=== PATIENT | female | born 1965 | race African-American/Black ===

== ENCOUNTER 2017-01-02 10:06 | Emergency (ER) | payer SELFPAY ==
[~2017-01-02] VITALS: Ht 165.1 cm; Wt 110.2 kg
[2017-01-02 11:19] LABS: BASO # 0.1 x10^3/uL (0.0-0.2); BASO % 1 % (0-3); EOS % 1 % (0-3); HEMATOCRIT 33.7 % (36.0-47.0); HEMOGLOBIN 10.9 g/dL (12.0-15.5); LYMPH # 1.7 x10^3/uL (1.0-4.8); LYMPH % 21 % (24-48); MEAN CORPUSCULAR HEMOGLOBIN 30 pg (25-35); MEAN CORPUSCULAR HGB CONC 32 g/dL (31-37); MEAN CORPUSCULAR VOLUME 92 fL (79-100); MONO % 4 % (0-9); NEUT % 74 % (31-73); PLATELET COUNT 297 x10^3/uL (140-400); RED BLOOD COUNT 3.67 x10^6/uL (3.50-5.40); RED CELL DISTRIBUTION WIDTH 15.9 % (11.5-14.5); WHITE BLOOD COUNT 8.2 x10^3/uL (4.0-11.0)
[2017-01-02 11:26] LABS: BILIRUBIN,URINE NEGATIVE (NEG); GLUCOSE,URINE NEGATIVE (NEG); NITRITE,URINE NEGATIVE (NEG); PROTEIN,URINE NEGATIVE (NEG-TRACE); UROBILINOGEN,URINE 0.2 mg/dL (0.2 mg/dL)
[2017-01-02] MEDS ORDERED: IV NORMAL SALINE 1000ML BAG 1,000 ML IV ONE (11:30)
[2017-01-02] MEDS ORDERED: FAMOTIDINE 20 MG/2 ML VIAL IVP ONE (11:30)
[2017-01-02] MEDS ORDERED: MORPHINE SULFATE 10 MG/ML VIAL. IV ONE (11:30)
[2017-01-02] MEDS ORDERED: ONDANSETRON PF 4 MG/2 ML VIAL. IV ONE (11:30)
[2017-01-02 11:33] LABS: CALCIUM 9.8 mg/dL (8.5-10.1); CREATININE 1.2 mg/dL (0.6-1.0); GFR 57.3; POTASSIUM 3.5 mmol/L (3.5-5.1)
[2017-01-02 11:36] LABS: BACTERIA,URINE MODERATE /HPF (0-FEW); SQUAMOUS EPITHELIAL CELL,UR MANY /LPF
[2017-01-02 11:37] LABS: RBC,URINE OCC /HPF (0-2)
[2017-01-02 11:38] LABS: TRICHOMONAS,URINE PRESENT
[2017-01-02 11:39] LABS: ALBUMIN 4.1 g/dL (3.4-5.0); ALBUMIN/GLOBULIN RATIO 1.1 (1.0-1.7); TOTAL BILIRUBIN 0.2 mg/dL (0.2-1.0)
--- NOTE | 2017-01-02 12:22 | RAD ---
CT study of the abdomen and pelvis without contrast Clinical indications: Abdominal pain. Technique: Noncontrast helical CT scanning of the abdomen and pelvis was performed. Without contrast, the sensitivity to detect organ pathology and GI tract pathology is decreased. PQRS Compliance Statement: One or more of the following individualized dose reduction techniques were utilized for this examination: 1. Automated exposure control 2. Adjustment of the mA and/or kV according to patient size 3. Use of iterative reconstruction technique Comparison: None available. Findings: The liver and spleen and pancreas are homogeneous in appearance on this noncontrast study. The gallbladder is normal and no extra hepatic biliary ductal dilatation is seen. No adrenal mass is evident. Urinary bladder is not distended. No hydronephrosis or hydroureter or urinary tract stone is seen. No focal aneurysmal dilatation of the abdominal aorta is seen. No enlarged abdominal or pelvic lymphadenopathy is seen. Uterus is enlarged measuring 16 cm in length. Mild thickening of the endometrial canal is seen. No dominant ovarian cyst or mass is seen. The appendix is normal. No obstructive bowel pattern is seen. Midline supraumbilical abdominal hernia is seen containing only fat. Inflammatory change is seen here which may indicate incarceration. The hernia sac measures 4.5 cm. No bowel loops is seen extending into this area. No bowel obstruction or free air or free fluid or mesenteric inflammatory change is seen. No lung base consolidation is evident. No osteolytic process is seen. IMPRESSION: Anterior supraumbilical midline abdominal wall hernia containing only fat. Inflammatory change is seen here consistent with incarceration. No bowel is seen extending into this area. No bowel obstruction is evident. Enlarged uterus. Mild thickening of the endometrial canal. Recommend outpatient pelvic sonography for further evaluation.
[2017-01-02] MEDS ORDERED: metroNIDAZOLE 500 MG TABLET PO ONE (13:00)
[2017-01-02] MEDS ORDERED: AZITHROMYCIN 250 MG TABLET. PO ONE (13:00)
[2017-01-02] MEDS ORDERED: cefTRIAXone IM 250 MG VIAL IM ONE (13:00)
--- NOTE | 2017-01-02 13:21 | PHYS DOC ---
Past Medical History Past Medical History: No Pertinent History, Hypothyroid Past Surgical History: No Surgical History Alcohol Use: None Drug Use: None Adult General Chief Complaint Chief Complaint: ABDOMINAL PAIN HPI HPI Patient is a 51 year old female with history of hypothyroidism who presents today with right flank and low back pain mild in nature that has been going on intermittently for 1 month. Patient is also complaining of generalized abdominal pain for 1 month. Patient denies any trauma. Denies any pain radiating to bilateral lower extremities. She states she is aware she has " a very bad thyroid problem with high numbers" and is supposed to be on medication but she does not take the medication neither does she follow up with her PCP. Patient denies any hematuria chest pain urgency frequency dysuria. PCP at [facility] Review of Systems Review of Systems Constitutional: Denies fever or chills [] Eyes: Denies change in visual acuity, redness, or eye pain [] HENT: Denies nasal congestion or sore throat [] Respiratory: Denies cough or shortness of breath [] Cardiovascular: No additional information not addressed in HPI [] GI: Generalized abdominal pain : Right flank pain Musculoskeletal: low back pain Integument: Denies rash or skin lesions [] Neurologic: Denies headache, focal weakness or sensory changes [] Endocrine: Denies polyuria or polydipsia [] Current Medications Current Medications Current Medications Medications (Trade) Dose Ordered Sig/Deny Start Time Stop Time Status Last Admin Dose Admin Azithromycin (Zithromax) 1,000 mg 1X ONCE 01/02/17 13:00 01/02/17 13:01 DC 01/02/17 13:11 1,000 MG Ceftriaxone Sodium (Rocephin Im) 250 mg 1X ONCE 01/02/17 13:00 01/02/17 13:01 DC 01/02/17 13:11 250 MG Famotidine (Pepcid) 20 mg 1X ONCE 01/02/17 11:30 01/02/17 11:31 DC 01/02/17 11:30 20 MG Metronidazole (Flagyl) 2,000 mg 1X ONCE 01/02/17 13:00 01/02/17 13:01 DC 01/02/17 13:11 2,000 MG Morphine Sulfate 5 mg 1X ONCE 01/02/17 11:30 01/02/17 11:31 DC 01/02/17 11:31 5 MG Ondansetron HCl (Zofran) 4 mg 1X ONCE 01/02/17 11:30 01/02/17 11:31 DC 01/02/17 11:30 4 MG Sodium Chloride 1,000 ml @ 1,000 mls/hr 1X ONCE 01/02/17 11:30 01/02/17 12:29 DC 01/02/17 11:30 1,000 MLS/HR Allergies Allergies Allergies Coded Allergies Type Severity Reaction Last Updated Verified No Known Drug Allergies 01/02/17 No Physical Exam Physical Exam Constitutional: Well developed, well nourished, no acute distress, non-toxic appearance. [] HENT: Normocephalic, atraumatic, bilateral external ears normal, oropharynx moist, no oral exudates, nose normal. [] Eyes: PERRLA, EOMI, conjunctiva normal, no discharge. [] Neck: Normal range of motion, no tenderness, supple, no stridor. [] Cardiovascular:Heart rate regular rhythm, no murmur [] Lungs & Thorax: Bilateral breath sounds clear to auscultation [] Abdomen: Rounded obese abdomen with obvious supraumbilical hernia with tenderness on the hernia on exam. Bowel sounds normal, soft, no masses, no pulsatile masses. [] Skin: Warm, dry, no erythema, no rash. [] Back: No tenderness, no CVA tenderness. [] Extremities: No tenderness, no cyanosis, no clubbing, ROM intact, no edema. [] Neurologic: Alert and oriented X 3, normal motor function, normal sensory function, no focal deficits noted. [] Psychologic: Affect normal, judgement normal, mood normal. [] Current Patient Data Vital Signs Vital Signs Date Time Temp Pulse Resp B/P (MAP) Pulse Ox O2 Delivery O2 Flow Rate FiO2 01/02/17 13:05 58 172/85 (114) 97 Room Air 01/02/17 11:31 16 01/02/17 10:30 97.9 97.9 Lab Values Laboratory Tests Test 01/02/17 11:00 01/02/17 11:10 Urine Collection Type Unknown Urine Color Yellow Urine Clarity Clear Urine pH 6.0 Urine Specific [place] 1.025 Urine Protein Negative mg/dL (NEG-TRACE) Urine Glucose (UA) Negative mg/dL (NEG) Urine Ketones (Stick) Negative mg/dL (NEG) Urine Blood Negative (NEG) Urine Nitrite Negative (NEG) Urine Bilirubin Negative (NEG) Urine Urobilinogen Dipstick 0.2 mg/dL (0.2 mg/dL) Urine Leukocyte Esterase Moderate (NEG) Urine RBC Occ /HPF (0-2) Urine WBC 11-20 /HPF (0-4) Urine Squamous Epithelial Cells Many /LPF Urine Bacteria Moderate /HPF (0-FEW) Urine Mucus Marked /LPF Urine Trichomonas Present White Blood Count 8.2 x10^3/uL (4.0-11.0) Red Blood Count 3.67 x10^6/uL (3.50-5.40) Hemoglobin 10.9 g/dL (12.0-15.5) L Hematocrit 33.7 % (36.0-47.0) L Mean Corpuscular Volume 92 fL (79-100) Mean Corpuscular Hemoglobin 30 pg (25-35) Mean Corpuscular Hemoglobin Concent 32 g/dL (31-37) Red Cell Distribution Width 15.9 % (11.5-14.5) H Platelet Count 297 x10^3/uL (140-400) Neutrophils (%) (Auto) 74 % (31-73) H Lymphocytes (%) (Auto) 21 % (24-48) L Monocytes (%) (Auto) 4 % (0-9) Eosinophils (%) (Auto) 1 % (0-3) Basophils (%) (Auto) 1 % (0-3) Neutrophils # (Auto) 6.0 x10^3uL (1.8-7.7) Lymphocytes # (Auto) 1.7 x10^3/uL (1.0-4.8) Monocytes # (Auto) 0.4 x10^3/uL (0.0-1.1) Eosinophils # (Auto) 0.1 x10^3/uL (0.0-0.7) Basophils # (Auto) 0.1 x10^3/uL (0.0-0.2) Sodium Level 143 mmol/L (136-145) Potassium Level 3.5 mmol/L (3.5-5.1) Chloride Level 106 mmol/L (98-107) Carbon Dioxide Level 27 mmol/L (21-32) Anion Gap 10 (6-14) Blood Urea Nitrogen 12 mg/dL (7-20) Creatinine 1.2 mg/dL (0.6-1.0) H Estimated GFR (Cockcroft-Gault) 57.3 BUN/Creatinine Ratio 10 (6-20) Glucose Level 99 mg/dL (70-99) Calcium Level 9.8 mg/dL (8.5-10.1) Total Bilirubin 0.2 mg/dL (0.2-1.0) Aspartate Amino Transferase (AST) 29 U/L (15-37) Alanine Aminotransferase (ALT) 21 U/L (14-59) Alkaline Phosphatase 96 U/L (46-116) Total Protein 8.0 g/dL (6.4-8.2) Albumin 4.1 g/dL (3.4-5.0) Albumin/Globulin Ratio 1.1 (1.0-1.7) Lipase 124 U/L (73-393) Thyroid Stimulating Hormone (TSH) 33.499 uIU/mL (0.358-3.74) H Laboratory Tests 01/02/17 11:10 Laboratory Tests 01/02/17 11:10 EKG EKG [] Radiology/Procedures Radiology/Procedures PROCEDURE: CT ABDOMEN PELVIS WO CONTRAST CT study of the abdomen and pelvis without contrast Clinical indications: Abdominal pain. Technique: Noncontrast helical CT scanning of the abdomen and pelvis was performed. Without contrast, the sensitivity to detect organ pathology and GI tract pathology is decreased. PQRS Compliance Statement: One or more of the following individualized dose reduction techniques were utilized for this examination: 1. Automated exposure control 2. Adjustment of the mA and/or kV according to patient size 3. Use of iterative reconstruction technique Comparison: None available. Findings: The liver and spleen and pancreas are homogeneous in appearance on this noncontrast study. The gallbladder is normal and no extra hepatic biliary ductal dilatation is seen. No adrenal mass is evident. Urinary bladder is not distended. No hydronephrosis or hydroureter or urinary tract stone is seen. No focal aneurysmal dilatation of the abdominal aorta is seen. No enlarged abdominal or pelvic lymphadenopathy is seen. Uterus is enlarged measuring 16 cm in length. Mild thickening of the endometrial canal is seen. No dominant ovarian cyst or mass is seen. The appendix is normal. No obstructive bowel pattern is seen. Midline supraumbilical abdominal hernia is seen containing only fat. Inflammatory change is seen here which may indicate incarceration. The hernia sac measures 4.5 cm. No bowel loops is seen extending into this area. No bowel obstruction or free air or free fluid or mesenteric inflammatory change is seen. No lung base consolidation is evident. No osteolytic process is seen. IMPRESSION: Anterior supraumbilical midline abdominal wall hernia containing only fat. Inflammatory change is seen here consistent with incarceration. No bowel is seen extending into this area. No bowel obstruction is evident. Enlarged uterus. Mild thickening of the endometrial canal. Recommend outpatient pelvic sonography for further evaluation. DICTATED and SIGNED BY: DREA CALERO MD DATE: 01/02/17 1212 CC: PAT ZHU MD; ELIZABETH MELCHOR APRN; NO PCP ~ Course & Med Decision Making Course & Med Decision Making Pertinent Labs and Imaging studies reviewed. (See chart for details) This is a 51-year-old female patient who presents to the ED complaining of low back pain, right flank pain as well as generalized abdominal pain for 1 month. Urine positive for infection, patient is also positive for Trichomonas. She was given Flagyl Rocephin and azithromycin in the ED. CBC no acute findings, CMP lipase with no acute findings. TSH 33.499 patient states she is supposed to be on thyroid medication but she has not taken this medication for a long time. Patient is not tachycardic or bradycardic. 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 We did provide her a doctor's list. Blood pressure is 168/113, patient has history of hypertension currently not on any medication. Heart rate 79, O2 sats 95% on room air, temperature 97.9, respiration 18 on room air. We recommended PCP f/u she goes to [facility] 13:50 Gabrielle from general surgery came and talked to patient about her hernia and recommended out patient follow up Willard Disclaimer Willard Disclaimer This electronic medical record was generated, in whole or in part, using a voice recognition dictation system. Departure Departure Impression: Primary Impression: Hypothyroidism Additional Impressions: Umbilical hernia, incarcerated Pyelonephritis Back pain Trichomonal vaginitis Disposition: HOME, SELF-CARE Condition: STABLE Referrals: NO PCP (PCP) follow up with [facility] endocronologist or your doctor at [facility] or a doctor from the list provided as soon as possible CHARLEY SLAED MD follow up with the provided general surgeon as soon as possible for hernia Patient Instructions: Abdominal Pain, Pyelonephritis, Adult, Trichomoniasis Additional Instructions: You seen for abdominal pain with back pain. Your TSH was 33.499. This shows you have hypothyroidism which you are aware of. You have to follow-up with your own primary care doctor as well as an biodiesel production technician at [facility] as soon as possible. You also have a kidney infection. We put you on antibiotics to clear this infection. We sent you home with pain medicine. Take them as prescribed. Follow-up with the provided general surgeon for umbilical hernia. Come back to the ED at any point symptoms worsen. You need to contact all your partners and let them know you tested positive for Trichomonas and ask them to seek treatment because this is a sexually transmitted disease. Scripts Tramadol Hcl (ULTRAM) 50 Mg Tablet 1 TAB PO Q6HRS, #30 TAB Prov: ELIZABETH MELCHOR APRN 01/02/17 Ciprofloxacin Hcl (CIPRO) 500 Mg Tablet 1 TAB PO BID, #14 TAB Prov: ELIZABETH MELCHOR APRN 01/02/17 Problem Qualifiers Primary Impression: Hypothyroidism Hypothyroidism type: unspecified Qualified Codes: E03.9 - Hypothyroidism, unspecified Additional Impressions: Back pain Back pain location: low back pain Chronicity: acute Back pain laterality: bilateral Sciatica presence: without sciatica Qualified Codes: M54.5 - Low back pain ELIZABETH MELCHOR APRN Jan 02, 2017 13:21
[2017-01-02 13:35] VITALS: BP 139/85
--- NOTE | 2017-01-02 14:03 | PDOC2 ---
CONSULT Date of Consult Date of Consult DATE: 01/02/17 TIME: 13:55 Reason for Consult Reason for Consult: abdominal hernia Referring Physician Referring Physician: ER Identification/Chief Complaint Chief Complaint right flank pain Problems: Source Source: Chart review, Patient History of Present Illness Reason for Visit: Here for right flank pain. 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 She reports she had a umbilical hernia repair as a child--last few months has noticed bulge and some pain to area. This is unchanged today and not her main concern for ER visit. Reports normal diet, having stools, no n/v She is aware she has a hypothyroid, not following a provider or taking medication Past Medical History Endocrine: Hypothyroidism Past Surgical History Past Surgical History: Hernia Repair (umbilical ) Social History No ALCOHOL: rare Drugs: Marijuana Lives: Alone Current Problem List Problem List Problems Medical Problems: (1) Hypothyroidism Status: Acute (2) Umbilical hernia, incarcerated Status: Acute Current Medications Current Medications Current Medications Sodium Chloride 1,000 ml @ 1,000 mls/hr 1X ONCE IV Last administered on 11:30; Start 01/02/17 at 11:30; Stop 01/02/17 at 12:29; Status DC Ondansetron HCl (Zofran) 4 mg 1X ONCE IV Last administered on 01/02/17 11:30 ; Start 01/02/17 at 11:30; Stop 01/02/17 at 11:31; Status DC Famotidine (Pepcid) 20 mg 1X ONCE IVP Last administered on 01/02/17 11:30; Start 01/02/17 at 11:30; Stop 01/02/17 at 11:31; Status DC Morphine Sulfate 5 mg 1X ONCE IV Last administered on 01/02/17 11:31; Start 01/02/17 at 11:30; Stop 01/02/17 at 11:31; Status DC Ceftriaxone Sodium (Rocephin Im) 250 mg 1X ONCE IM Last administered on 13:11; Start 01/02/17 at 13:00; Stop 01/02/17 at 13:01; Status DC Azithromycin (Zithromax) 1,000 mg 1X ONCE PO Last administered on 01/02/17 13 :11; Start 01/02/17 at 13:00; Stop 01/02/17 at 13:01; Status DC Metronidazole (Flagyl) 2,000 mg 1X ONCE PO Last administered on 01/02/17t 13: 11; Start 01/02/17 at 13:00; Stop 01/02/17 at 13:01; Status DC Allergies Allergies: Coded Allergies: No Known Drug Allergies (Unverified , 01/02/17) ROS General: No: Chills, Other (fevers) PSYCHOLOGICAL ROS: No: Anxiety, Depression Eyes: No Blurry vision, No Double vision HEENT: No: Heacaches, Sore Throat Hematological and Lymphatic: No: Bleeding Problems, Blood Clots Respiratory: No: Cough, Shortness of breath Cardiovascular: No Chest Pain, No Palpitations Gastrointestinal: Yes Other (see hpi) Genitourinary: No Dysuria, No Hematuria Musculoskeletal: Yes Muscle Pain, No Joint Pain Neurological: No Confusion, No Numbness/Tingling Skin: No Pruritus, No Rash Physical Exam General: Alert, Oriented X3, Cooperative, No acute distress HEENT: PERRLA, Mucous membr. moist/pink Lungs: Clear to auscultation, Normal air movement Heart: Regular rate, Normal S1, Normal S2, No murmurs Abdomen: Soft, Other (NTTP on exam, hernia soft, difficult to tell if reduced due to body habitus) Extremities: No clubbing, No cyanosis Skin: No rashes, No breakdown Neuro: Normal gait, Normal speech Psych/Mental Status: Mental status NL, Mood NL MUSCULOSKELETAL: No deformity, No swelling Vitals VITALS Vital Signs Date Time Temp Pulse Resp B/P (MAP) Pulse Ox O2 Delivery O2 Flow Rate FiO2 01/02/17 13:05 58 172/85 (114) 97 Room Air 01/02/17 11:31 16 01/02/17 10:30 97.9 97.9 Labs Labs Laboratory Tests Test 01/02/17 11:00 01/02/17 11:10 Urine Collection Type Unknown Urine Color Yellow Urine Clarity Clear Urine pH 6.[address] [place] 1.025 Urine Protein Negative mg/dL (NEG-TRACE) Urine Glucose (UA) Negative mg/dL (NEG) Urine Ketones (Stick) Negative mg/dL (NEG) Urine Blood Negative (NEG) Urine Nitrite Negative (NEG) Urine Bilirubin Negative (NEG) Urine Urobilinogen Dipstick 0.2 mg/dL (0.2 mg/dL) Urine Leukocyte Esterase Moderate (NEG) Urine RBC Occ /HPF (0-2) Urine WBC 11-20 /HPF (0-4) Urine Squamous Epithelial Cells Many /LPF Urine Bacteria Moderate /HPF (0-FEW) Urine Mucus Marked /LPF Urine Trichomonas Present White Blood Count 8.2 x10^3/uL (4.0-11.0) Red Blood Count 3.67 x10^6/uL (3.50-5.40) Hemoglobin 10.9 g/dL (12.0-15.5) Hematocrit 33.7 % (36.0-47.0) Mean Corpuscular Volume 92 fL (79-100) Mean Corpuscular Hemoglobin 30 pg (25-35) Mean Corpuscular Hemoglobin Concent 32 g/dL (31-37) Red Cell Distribution Width 15.9 % (11.5-14.5) Platelet Count 297 x10^3/uL (140-400) Neutrophils (%) (Auto) 74 % (31-73) Lymphocytes (%) (Auto) 21 % (24-48) Monocytes (%) (Auto) 4 % (0-9) Eosinophils (%) (Auto) 1 % (0-3) Basophils (%) (Auto) 1 % (0-3) Neutrophils # (Auto) 6.0 x10^3uL (1.8-7.7) Lymphocytes # (Auto) 1.7 x10^3/uL (1.0-4.8) Monocytes # (Auto) 0.4 x10^3/uL (0.0-1.1) Eosinophils # (Auto) 0.1 x10^3/uL (0.0-0.7) Basophils # (Auto) 0.1 x10^3/uL (0.0-0.2) Sodium Level 143 mmol/L (136-145) Potassium Level 3.5 mmol/L (3.5-5.1) Chloride Level 106 mmol/L (98-107) Carbon Dioxide Level 27 mmol/L (21-32) Anion Gap 10 (6-14) Blood Urea Nitrogen 12 mg/dL (7-20) Creatinine 1.2 mg/dL (0.6-1.0) Estimated GFR (Cockcroft-Gault) 57.3 BUN/Creatinine Ratio 10 (6-20) Glucose Level 99 mg/dL (70-99) Calcium Level 9.8 mg/dL (8.5-10.1) Total Bilirubin 0.2 mg/dL (0.2-1.0) Aspartate Amino Transf (AST/SGOT) 29 U/L (15-37) Alanine Aminotransferase (ALT/SGPT) 21 U/L (14-59) Alkaline Phosphatase 96 U/L (46-116) Total Protein 8.0 g/dL (6.4-8.2) Albumin 4.1 g/dL (3.4-5.0) Albumin/Globulin Ratio 1.1 (1.0-1.7) Lipase 124 U/L (73-393) Thyroid Stimulating Hormone (TSH) 33.499 uIU/mL (0.358-3.74) Laboratory Tests Test 01/02/17 11:00 01/02/17 11:10 Urine Collection Type Unknown Urine Color Yellow Urine Clarity Clear Urine pH 6.[address] 1.025 Urine Protein Negative mg/dL (NEG-TRACE) Urine Glucose (UA) Negative mg/dL (NEG) Urine Ketones (Stick) Negative mg/dL (NEG) Urine Blood Negative (NEG) Urine Nitrite Negative (NEG) Urine Bilirubin Negative (NEG) Urine Urobilinogen Dipstick 0.2 mg/dL (0.2 mg/dL) Urine Leukocyte Esterase Moderate (NEG) Urine RBC Occ /HPF (0-2) Urine WBC 11-20 /HPF (0-4) Urine Squamous Epithelial Cells Many /LPF Urine Bacteria Moderate /HPF (0-FEW) Urine Mucus Marked /LPF Urine Trichomonas Present White Blood Count 8.2 x10^3/uL (4.0-11.0) Red Blood Count 3.67 x10^6/uL (3.50-5.40) Hemoglobin 10.9 g/dL (12.0-15.5) Hematocrit 33.7 % (36.0-47.0) Mean Corpuscular Volume 92 fL (79-100) Mean Corpuscular Hemoglobin 30 pg (25-35) Mean Corpuscular Hemoglobin Concent 32 g/dL (31-37) Red Cell Distribution Width 15.9 % (11.5-14.5) Platelet Count 297 x10^3/uL (140-400) Neutrophils (%) (Auto) 74 % (31-73) Lymphocytes (%) (Auto) 21 % (24-48) Monocytes (%) (Auto) 4 % (0-9) Eosinophils (%) (Auto) 1 % (0-3) Basophils (%) (Auto) 1 % (0-3) Neutrophils # (Auto) 6.0 x10^3uL (1.8-7.7) Lymphocytes # (Auto) 1.7 x10^3/uL (1.0-4.8) Monocytes # (Auto) 0.4 x10^3/uL (0.0-1.1) Eosinophils # (Auto) 0.1 x10^3/uL (0.0-0.7) Basophils # (Auto) 0.1 x10^3/uL (0.0-0.2) Sodium Level 143 mmol/L (136-145) Potassium Level 3.5 mmol/L (3.5-5.1) Chloride Level 106 mmol/L (98-107) Carbon Dioxide Level 27 mmol/L (21-32) Anion Gap 10 (6-14) Blood Urea Nitrogen 12 mg/dL (7-20) Creatinine 1.2 mg/dL (0.6-1.0) Estimated GFR (Cockcroft-Gault) 57.3 BUN/Creatinine Ratio 10 (6-20) Glucose Level 99 mg/dL (70-99) Calcium Level 9.8 mg/dL (8.5-10.1) Total Bilirubin 0.2 mg/dL (0.2-1.0) Aspartate Amino Transf (AST/SGOT) 29 U/L (15-37) Alanine Aminotransferase (ALT/SGPT) 21 U/L (14-59) Alkaline Phosphatase 96 U/L (46-116) Total Protein 8.0 g/dL (6.4-8.2) Albumin 4.1 g/dL (3.4-5.0) Albumin/Globulin Ratio 1.1 (1.0-1.7) Lipase 124 U/L (73-393) Thyroid Stimulating Hormone (TSH) 33.499 uIU/mL (0.358-3.74) Assessment/Plan Assessment/Plan supraumbilical hernia, fat containing incarcerated--no bowel involvement flank pain with + UA, trich on UA very high TSH of 33 morbid obesity with BMI 40.4 recommend treatment for infection, needs FU for thyroid adjustments would rec weight loss prior to surgical repair of hernia, can fu as outpt in clinic with HANS Corado APRN Jan 02, 2017 14:03
[2017-01-02] MEDS ORDERED: CIPR500T94 PO (14:09)
[2017-01-02] MEDS ORDERED: TRAM-48 PO (14:09)
== END 2017-01-02 14:24 | disposition home or self-care (01) ==
LOC: ER 10:06
DX: N12 Tubulo-interstitial nephritis, not specified as acute or chronic (principal); K42.0 Umbilical hernia with obstruction, without gangrene; A59.01 Trichomonal vulvovaginitis; E03.9 Hypothyroidism, unspecified; I10 Essential (primary) hypertension
CPT/HCPCS: 36415; 74176; 80053; 81001; 83690; 84443; 85027; 87086; 96361; 96372; 96374; 96375; 99285; J0696; J2270; J2405; J7030; Q0144; S0028